=== PATIENT | female | born 1985 | race Caucasian/White ===

== ENCOUNTER 2021-06-26 19:15 | Emergency (ER) | payer OTHER ==
[2021-06-26 19:38] VITALS: TEMP 98.6; BMI 29.2
[2021-06-26] MEDS ORDERED: ONDANSETRON 4 MG/2 ML VIAL IVPUSH ONE (20:44)
[2021-06-26] MEDS ORDERED: SODIUM CHLORIDE 0.9% 500 ML INFUS.BAG IV ONE (20:45)
[2021-06-26] MEDS ORDERED: FAMOTIDINE 20 MG/50 ML IVPB 20 MG/50 ML MG IVPB ONE ×2 (21:01)
[2021-06-26] MEDS ORDERED: ONDANSETRON 4 MG/2 ML VIAL ONE (21:01)
[2021-06-26] MEDS ORDERED: ACETAMINOPHEN 1000 MG/100 ML BAG IVPB ONE (21:01)
[2021-06-26] MEDS ORDERED: ACETAMINOPHEN INJECTION 100 ML IVPB ONE (21:18)
[2021-06-26] MEDS ORDERED: FAMOTIDINE 10 MG/ML VIAL IVPB ONE ×2 (21:18→21:21)
[2021-06-26 21:25] LABS: BASO % 0.3 % (0-2.0); EOS % 0.2 % (0-4.5); HEMATOCRIT 43.4 % (32.4-45.2); HEMOGLOBIN 14.9 GM/dL (10.7-15.3); LYMPH % 17.2 % (8-40); MCH 32.3 pg (25.7-33.7); MCHC 34.4 g/dl (32.0-36.0); MEAN CELL VOLUME 93.8 fl (80-96); MEAN PLT VOLUME 9.6 fl (7.5-11.1); MONO % 11.5 % (3.8-10.2); NEUT % 70.8 % (42.8-82.8); PLATELET COUNT 205 10^3/uL (134-434); RBC 4.63 M/mm3 (3.60-5.2); RDW 12.2 % (11.6-15.6); WHITE BLOOD COUNT 5.7 K/mm3 (4.0-10.0)
[2021-06-26 21:49] LABS: ALBUMIN 4.2 g/dl (3.4-5.0); CALCIUM 9.2 mg/dL (8.5-10.1)
[2021-06-26 21:50] LABS: BLOOD UREA NITROGEN 9.2 mg/dL (7-18); MAGNESIUM 1.8 mg/dL (1.8-2.4)
[2021-06-26 21:52] LABS: CREATININE 0.8 mg/dL (0.55-1.3)
[2021-06-26 21:53] LABS: TOT PROT 7.7 g/dl (6.4-8.2)
[2021-06-26 21:54] LABS: BILIRUBIN,TOTAL 0.9 mg/dL (0.2-1)
[2021-06-26 22:34] VITALS: BP 118/70; PULSE 88
== END 2021-06-26 22:34 | disposition home or self-care (01) ==
LOC: JER 19:15
DX: R11.2 Nausea with vomiting, unspecified (principal); R19.7 Diarrhea, unspecified
CPT/HCPCS: 36415; 80053; 83735; 85025; 87804; 99284-25; C9803-CS; U0003; U0005